=== PATIENT | male | born 1980 | race Two or more races ===

== ENCOUNTER 2017-03-13 12:39 | Inpatient (IN) | payer BC ==
[2017-03-13 14:35] VITALS: BMI 34.5
--- NOTE | 2017-03-13 15:25 | HP ---
Admission ROS [facility] Chief Complaint: I only drink on the weekend but I am here for rehab. Allergies/Adverse Reactions: Allergies Allergy/AdvReac Type Severity Reaction Status Date / Time No Known Allergies Allergy Verified 03/13/17 15:18 History of Present Illness: pt is a 36yr old male with a history of alcohol, kadeem, cannabis dependence seeking rehab for treatment. Pt was at [facility] 03/08 and d/c today, for chest pain. pt had a cardiac cath and no blockage noted. pt was discharged with naproxen for pain. Exam Limitations: No Limitations - Ebola screening Have you traveled outside of the country in the last 21 days: No Have you had contact with anyone from an Ebola affected area: No Have you been sick,other than usual withdrawal symptoms: No Do you have a fever: No - Review of Systems Constitutional: Changes in sleep EENT: reports: No Symptoms Reported Respiratory: reports: No Symptoms reported Cardiac: reports: No Symptoms Reported, Other (r/o cardiac issue a nonstemi done.) GI: reports: No Symptoms Reported : reports: No Symptoms Reported Musculoskeletal: reports: Joint Pain (right ankle d/t fall) Integumentary: reports: No Symptoms Reported Neuro: reports: No Symptoms reported Endocrine: reports: No Symptoms Reported Hematology: reports: No Symptoms Reported Psychiatric: reports: Judgement Intact, Mood/Affect Appropiate, Orientated x3, Agitated, Anxious Other Systems: Reviewed and Negative Patient History - Patient Medical History Hx Anemia: No Hx Asthma: No Hx Chronic Obstructive Pulmonary Disease (COPD): No Hx Cancer: No Hx Cardiac Disorders: Yes (NONSTEMI 02/2017) Hx Congestive Heart Failure: No Hx Hypertension: No Hx Hypercholesterolemia: No Hx Pacemaker: No HX Cerebrovascular Accident: No Hx Seizures: No Hx Dementia: No Hx Diabetes: No Hx Gastrointestinal Disorders: No Hx Liver Disease: No Hx Genitourinary Disorders: No Hx Sexually Transmitted Disorders: No Hx Renal Disease (ESRD): No Hx Thyroid Disease: No Hx Human Immunodeficiency Virus (HIV): No (negative) Hx Hepatitis C: No Hx Depression: No Hx Suicide Attempt: No (denies) Hx Bipolar Disorder: No Hx Schizophrenia: No Other Medical History: ADD as a child - Patient Surgical History Hx Cardiac Surgery: Yes (cardiac cath 02/2017) Hx Orthopedic Surgery: Yes (rt ankle sx 17months ago 2016) - PPD History Previous Implant?: Yes Documented Results: Negative w/o proof PPD to be Administered?: Yes - Reproductive History Patient is a Female of Child Bearing Age (11 -55 yrs old): No - Smoking Cessation Smoking history: Current every day smoker Have you smoked in the past 12 months: Yes Aproximately how many cigarettes per day: 4 Hx Chewing Tobacco Use: No Initiated information on smoking cessation: Yes 'Breaking Loose' booklet given: 03/13/17 - Substance & Tx. History Hx Alcohol Use: Yes Hx Substance Use: Yes Substance Use Type: Alcohol, Cocaine, Marijuana Hx Substance Use Treatment: Yes - Substances Abused Alcohol Route: Oral Frequency: 1-2 times per week Amount used: 1 Alcohol-beer Route: Oral Frequency: 3-6 times per week Amount used: 6-7 (24 oz.) Age of first use: 19 Date of Last Use: 03/12/17 Ecstacy Route: Oral Frequency: 1-2 times per week Amount used: $150 Age of first use: 35 Date of Last Use: 02/26/17 Marijuana Route: Smoking Frequency: Daily Amount used: $30 Age of first use: 15 Date of Last Use: 03/11/17 Family Disease History - Family Disease History Family History: Denies Admission Physical Exam S - Vital Signs Vital Signs: Vital Signs - 24 hr 03/13/17 14:33 Temperature 97 F L Pulse Rate 90 Respiratory 20 Rate Blood Pressure 149/80 - Physical General Appearance: Yes: Appropriately Dressed, Mild Distress, Anxious HEENTM: Yes: Normal Voice Respiratory: Yes: Lungs Clear, Normal Breath Sounds, No Respiratory Distress Neck: Yes: Within Normal Limits Breast: Yes: Within Normal Limits Cardiology: Yes: Regular Rhythm, Regular Rate, S1, S2 Abdominal: Yes: Within Normal Limits Genitourinary: Yes: Within Normal Limits Back: Yes: Normal Inspection Musculoskeletal: Yes: Other (right ankle pain) Extremities: Yes: Normal Capillary Refill Neurological: Yes: Fully Oriented, Alert, Normal Response Integumentary: Yes: Normal Color Lymphatic: Yes: Within Normal Limits - Diagnostic (1) Alcohol abuse Current Visit: No Status: Chronic (2) Cannabis dependence Current Visit: Yes Status: Chronic (3) Nicotine dependence Current Visit: Yes Status: Chronic Qualifiers: Nicotine product type: cigarettes Substance use status: uncomplicated Qualified Code(s): F17.210 - Nicotine dependence, cigarettes, uncomplicated; F17.210 - Nicotine dependence, cigarettes, uncomplicated Cleared for Admission S - Detox or Rehab [facility] Level of Care: Medically Managed Claeared for Rehab Admission: Yes [facility] Breath Alcohol Content Breath Alcohol Content: 0 Urine Drug Screen - Results Drug Screen Negative: No Urine Drug Screen Results: THC-Marijuana, ANA-Cocaine, BZO-Benzodiazepines, TCA- Tricyclic Antidepress Inpatient Rehab Admission - Initial Determination Free of communicable disease: Yes Not in need of hospitalization: Yes - Rehab Admission Criteria Patient is meeting Inpatient Rehab admission criteria:: Yes
[2017-03-13] MEDS ORDERED: guaiFENesin/D-METHORPHAN HB 10 ML UNIT-DOSE CUPS PO PRN (15:30)
[2017-03-13] MEDS ORDERED: NICOTINE POLACRILEX 4 MG GUM BC PRN (15:30)
[2017-03-13] MEDS ORDERED: MAGNESIUM CITRATE 300 ML BOTTLE PO PRN (15:30)
[2017-03-13] MEDS ORDERED: MENTHOL/PHENOL 1 EACH UD MM PRN (15:30)
[2017-03-13] MEDS ORDERED: IBUPROFEN 400 MG TABLET (FP) PO PRN (15:30)
[2017-03-13] MEDS ORDERED: ACETAMINOPHEN 325 MG TABLET (FP) PO PRN (15:30)
[2017-03-13] MEDS ORDERED: P-EPHED 60MG/TRIPROLIDI 2.5MG TABLET PO PRN (15:30)
[2017-03-13] MEDS ORDERED: LOPERAMIDE HCL 2 MG CAPSULE PO PRN (15:30)
[2017-03-13] MEDS ORDERED: MAG HYDROX/AL HYDROX/SIMETH 30 ML UNIT-DOSE CUP PO PRN (15:30)
[2017-03-13] MEDS ORDERED: TUBERCULIN PPD 5 TU/0.1ML VIAL ID ONE (19:39)
[2017-03-13] MEDS: NAPROXEN 500 MG TABLET (FP) PO SCH (21:31)
[2017-03-13] MEDS: THIAMINE HCL 100 MG TABLET (FP) PO SCH (21:32)
[2017-03-13] MEDS: diphenhydrAMINE HCL 50 MG CAPSULE PO PRN (21:32)
[2017-03-14 00:53] LABS: URINE APPEARANCE CLEAR; URINE BILIRUBIN NEGATIVE (NEGATIVE); URINE BLOOD NEGATIVE (NEGATIVE); URINE COLOR YELLOW; URINE GLUCOSE (UA) NEGATIVE (NEGATIVE); URINE KETONE NEGATIVE (NEGATIVE); URINE NITRITE NEGATIVE (NEGATIVE); URINE PROTEIN NEGATIVE (NEGATIVE); URINE UROBILINOGEN NEGATIVE mg/dL (0.2-1.0)
--- NOTE | 2017-03-14 06:32 | HP ---
Psychiatrist Admission - Data Date of interview: 03/14/17 Admission source: 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 Smokes 4 cigarettes daily Psychiatric History: Reports being diagnosed with ADHD at age 13 and started on Adderall which he has been taking on & off till a month ago. He sees a psychiatrist at [facility] and he is prescribed Adderall 30 mg po BID and Seroquel 300 mg po HS for insomnia. Denies previous psychiatric hospitalization or suicidal attempt. At present, reports feeling mildly depressed and sleeping poorly Physical/Sexual Abuse/Trauma History: Denies history of verbal, physical or sexual abuse as wel as DV relationship. No service Additional Comment: Reports history of one previous arrest for DWI. No probation currently Vital Signs: Vital Signs - 24 hr 03/13/17 03/13/17 03/14/17 14:33 23:26 00:43 Temperature 97 F L 97.4 F L Pulse Rate 90 85 Respiratory 20 16 18 Rate Blood Pressure 149/80 130/79 03/14/17 03:30 Temperature Pulse Rate Respiratory 18 Rate Blood Pressure Allergies/Adverse Reactions: Allergies Allergy/AdvReac Type Severity Reaction Status Date / Time No Known Allergies Allergy Verified 03/13/17 15:18 Date of last physical exam: 03/13/17 Concur with the findings of this exam: Yes - Substance Abuse/Tx History Hx Alcohol Use: Yes Hx Substance Use: Yes (Began using ecstacy at 35, consumes $150 1-2x weekly. Last used on 02/26/17) Substance Use Type: Alcohol (Started drinking beer at age 19, consumes 6-7x 24oz daily. Last drank on 03/12/17), Marijuana (Started smoking marijuana at age 15, consumes $30 worth daily. Last smoked on 03/11/17) Hx Substance Use Treatment: No Mental Status Exam - Mental Status Exam Alert and Oriented to: Time, Place, Person Cognitive Function: Fair Patient Appearance: Well Groomed Mood: Depressed Affect: Appropriate Patient Behavior: Cooperative Speech Pattern: Clear Voice Loudness: Normal Thought Process: Intact Thought Disorder: Not Present Hallucinations: Denies Suicidal Ideation: Denies Homicidal Ideation: Denies Insight/Judgement: Fair Sleep: Poorly Appetite: Good Muscle strength/Tone: Normal Gait/Station: Normal Psychiatric Findings - Problem List (Ducor 1, 2,3) (1) Alcohol dependence Current Visit: Yes Status: Acute (2) Cannabis dependence Current Visit: Yes Status: Chronic (3) Methylenedioxymethyamphetamine (MDMA) use disorder, moderate, in early remission, dependence Current Visit: Yes Status: Acute (4) Nicotine dependence Current Visit: Yes Status: Acute (5) ADHD (attention deficit hyperactivity disorder) Current Visit: Yes Status: Acute (6) Substance induced mood disorder Current Visit: Yes Status: Acute (7) Substance-induced sleep disorder Current Visit: Yes Status: Acute (8) NSTEMI (non-ST elevated myocardial infarction) Current Visit: Yes Status: Acute - Initial Treatment Plan Initial Treatment Plan: 1) Start Ritalin 5 mg po BID and Belsomra 10 mg po HS prn for insomnia. 2) Monitor progress
[2017-03-14 09:48] LABS: URINE LEUK ESTERASE Negative (NEGATIVE)
[2017-03-14] MEDS: PRENATAL VITAMINS W/ FOLIC ACID TABLET (FP) PO SCH (10:01)
[2017-03-14] MEDS: NICOTINE 7 MG/24 HOURS TOPICAL PATCH TD SCH (10:01)
[2017-03-14] MEDS: NAPROXEN 500 MG TABLET (FP) PO SCH ×2 (10:01→21:33)
[2017-03-14 10:02] LABS: MCH 30.9 pg (25.7-33.7); MCHC 34.5 g/dl (32.0-35.9); MEAN CELL VOLUME 89.4 fl (80-96); MEAN PLT VOLUME 8.6 fl (7.5-11.1); PLATELET COUNT 319 K/MM3 (134-434); RDW 13.7 % (11.9-15.9); WHITE BLOOD COUNT 5.4 K/mm3 (4.0-10.0)
--- NOTE | 2017-03-14 10:12 | EKG ---
Test Reason : Blood Pressure : / mmHG Vent. Rate : 067 BPM Atrial Rate : 067 BPM P-R Int : 150 ms QRS Dur : 082 ms QT Int : 428 ms P-R-T Axes : 053 052 040 degrees QTc Int : 452 ms NORMAL SINUS RHYTHM NORMAL ECG NO PREVIOUS ECGS AVAILABLE Confirmed by FELICE STILL MD ([id number]) on 03/14/2017 10:11:52 AM Referred By: Confirmed By:FELICE STILL MD
[2017-03-14 10:22] LABS: ALBUMIN 3.3 g/dl (3.4-5.0); ALK PHOS 157 U/L (45-117); ANION GAP 6 (8-16); BILIRUBIN,TOTAL 0.8 mg/dL (0.2-1.0); CO2 29 mmol/L (21-32); CREATININE 1.2 mg/dL (0.7-1.3); GLUCOSE,RANDOM 77 mg/dL (74-106); SGOT/AST 39 U/L (15-37); SGPT/ALT 96 U/L (12-78); TOT PROT 5.8 g/dl (6.4-8.2)
[2017-03-14] MEDS: hydrOXYzine PAMOATE 50 MG CAPSULE (FP) PO PRN (10:44)
[2017-03-14] MEDS: METHYLPHENIDATE HCL 5 MG TABLET PO SCH ×2 (11:15→17:12)
[2017-03-14] MEDS ORDERED: PNEUMOC 13-VAL CONJ-DIP CRM/PF 0.5 ML DISP.SYRIN IM ONE ×2 (12:00)
[2017-03-14] MEDS ORDERED: PNEUMOCOCCAL 23 VACCINE 0.5 ML VIAL IM ONE (12:00)
[2017-03-14] MEDS: THIAMINE HCL 100 MG TABLET (FP) PO SCH (21:33)
[2017-03-14] MEDS: SUVOREXANT 10 MG TABLET PO PRN (21:35)
[2017-03-15] MEDS: NAPROXEN 500 MG TABLET (FP) PO SCH ×2 (10:21→21:58)
[2017-03-15] MEDS: METHYLPHENIDATE HCL 5 MG TABLET PO SCH ×2 (10:21→16:59)
[2017-03-15] MEDS: PRENATAL VITAMINS W/ FOLIC ACID TABLET (FP) PO SCH (10:21)
[2017-03-15] MEDS: NICOTINE 7 MG/24 HOURS TOPICAL PATCH TD SCH (10:23)
[2017-03-15] MEDS: THIAMINE HCL 100 MG TABLET (FP) PO SCH (21:58)
[2017-03-15] MEDS: SUVOREXANT 10 MG TABLET PO PRN (22:00)
[2017-03-16] MEDS: diphenhydrAMINE HCL 50 MG CAPSULE PO PRN (00:02)
[2017-03-16] MEDS: METHYLPHENIDATE HCL 5 MG TABLET PO SCH ×2 (10:14→17:07)
[2017-03-16] MEDS: PRENATAL VITAMINS W/ FOLIC ACID TABLET (FP) PO SCH (10:14)
[2017-03-16] MEDS: NICOTINE 7 MG/24 HOURS TOPICAL PATCH TD SCH (10:15)
[2017-03-16] MEDS: NAPROXEN 500 MG TABLET (FP) PO SCH ×2 (10:15→21:40)
[2017-03-16] MEDS: MAGNESIUM HYDROX 2400MG/30ML ORAL SUSPENSION 30 ML CUP PO PRN (13:54)
[2017-03-16] MEDS: hydrOXYzine PAMOATE 50 MG CAPSULE (FP) PO PRN (20:08)
[2017-03-16] MEDS: THIAMINE HCL 100 MG TABLET (FP) PO SCH (21:40)
[2017-03-16] MEDS: SUVOREXANT 10 MG TABLET PO PRN (21:41)
[2017-03-17] MEDS: METHYLPHENIDATE HCL 5 MG TABLET PO SCH ×2 (10:25→16:43)
[2017-03-17] MEDS: NICOTINE 7 MG/24 HOURS TOPICAL PATCH TD SCH (10:25)
[2017-03-17] MEDS: PRENATAL VITAMINS W/ FOLIC ACID TABLET (FP) PO SCH (10:25)
[2017-03-17] MEDS: NAPROXEN 500 MG TABLET (FP) PO SCH ×3 (10:25→21:46)
[2017-03-17] MEDS: hydrOXYzine PAMOATE 50 MG CAPSULE (FP) PO PRN (16:45)
[2017-03-17] MEDS: THIAMINE HCL 100 MG TABLET (FP) PO SCH (21:46)
[2017-03-17] MEDS: SUVOREXANT 10 MG TABLET PO PRN (21:47)
[2017-03-17] MEDS: diphenhydrAMINE HCL 50 MG CAPSULE PO PRN (23:47)
[2017-03-18] MEDS: METHYLPHENIDATE HCL 5 MG TABLET PO SCH ×2 (10:19→16:44)
[2017-03-18] MEDS: PRENATAL VITAMINS W/ FOLIC ACID TABLET (FP) PO SCH (10:19)
[2017-03-18] MEDS: NICOTINE 7 MG/24 HOURS TOPICAL PATCH TD SCH (10:19)
[2017-03-18] MEDS: NAPROXEN 500 MG TABLET (FP) PO SCH ×2 (10:19→21:36)
[2017-03-18] MEDS: THIAMINE HCL 100 MG TABLET (FP) PO SCH (21:36)
[2017-03-18] MEDS: diphenhydrAMINE HCL 50 MG CAPSULE PO PRN (23:31)
[2017-03-19] MEDS: PRENATAL VITAMINS W/ FOLIC ACID TABLET (FP) PO SCH (10:27)
[2017-03-19] MEDS: METHYLPHENIDATE HCL 5 MG TABLET PO SCH ×2 (10:27→16:46)
[2017-03-19] MEDS: NAPROXEN 500 MG TABLET (FP) PO SCH ×2 (10:27→21:48)
[2017-03-19] MEDS: NICOTINE 7 MG/24 HOURS TOPICAL PATCH TD SCH (10:27)
[2017-03-19] MEDS: MAGNESIUM HYDROX 2400MG/30ML ORAL SUSPENSION 30 ML CUP PO PRN (13:13)
[2017-03-19] MEDS: hydrOXYzine PAMOATE 50 MG CAPSULE (FP) PO PRN (18:25)
[2017-03-19] MEDS: THIAMINE HCL 100 MG TABLET (FP) PO SCH (21:48)
[2017-03-19] MEDS: SUVOREXANT 10 MG TABLET PO PRN (21:50)
[2017-03-20] MEDS: NAPROXEN 500 MG TABLET (FP) PO SCH ×2 (10:42→21:45)
[2017-03-20] MEDS: PRENATAL VITAMINS W/ FOLIC ACID TABLET (FP) PO SCH (10:42)
[2017-03-20] MEDS: METHYLPHENIDATE HCL 5 MG TABLET PO SCH ×2 (10:42→17:01)
[2017-03-20] MEDS: NICOTINE 7 MG/24 HOURS TOPICAL PATCH TD SCH (10:45)
[2017-03-20] MEDS: NITROGLYCERIN SUBLINGUAL 1/150 0.4 MG TAB SL PRN (19:30)
[2017-03-20] MEDS: THIAMINE HCL 100 MG TABLET (FP) PO SCH (21:46)
[2017-03-20] MEDS: SUVOREXANT 10 MG TABLET PO PRN (23:24)
[2017-03-21] MEDS: PRENATAL VITAMINS W/ FOLIC ACID TABLET (FP) PO SCH (10:07)
[2017-03-21] MEDS: NICOTINE 7 MG/24 HOURS TOPICAL PATCH TD SCH (10:08)
[2017-03-21] MEDS: NAPROXEN 500 MG TABLET (FP) PO SCH ×2 (10:09→21:42)
[2017-03-21] MEDS: METHYLPHENIDATE HCL 5 MG TABLET PO SCH (13:04)
[2017-03-21] MEDS: hydrOXYzine PAMOATE 50 MG CAPSULE (FP) PO PRN (14:25)
[2017-03-21] MEDS: THIAMINE HCL 100 MG TABLET (FP) PO SCH (21:42)
[2017-03-21] MEDS: SUVOREXANT 10 MG TABLET PO PRN (21:43)
[2017-03-22] MEDS: diphenhydrAMINE HCL 50 MG CAPSULE PO PRN
[2017-03-22] MEDS: METHYLPHENIDATE HCL 5 MG TABLET PO SCH ×2 (09:52→14:00)
[2017-03-22] MEDS: NICOTINE 7 MG/24 HOURS TOPICAL PATCH TD SCH (09:52)
[2017-03-22] MEDS: NAPROXEN 500 MG TABLET (FP) PO SCH ×2 (09:52→21:36)
[2017-03-22] MEDS: PRENATAL VITAMINS W/ FOLIC ACID TABLET (FP) PO SCH (09:52)
[2017-03-22] MEDS: MAGNESIUM HYDROX 2400MG/30ML ORAL SUSPENSION 30 ML CUP PO PRN (09:54)
[2017-03-22] MEDS: hydrOXYzine PAMOATE 50 MG CAPSULE (FP) PO PRN (21:36)
[2017-03-22] MEDS: THIAMINE HCL 100 MG TABLET (FP) PO SCH (21:36)
[2017-03-23] MEDS: diphenhydrAMINE HCL 50 MG CAPSULE PO PRN (00:08)
[2017-03-23] MEDS: PRENATAL VITAMINS W/ FOLIC ACID TABLET (FP) PO SCH (10:10)
[2017-03-23] MEDS: NICOTINE 7 MG/24 HOURS TOPICAL PATCH TD SCH (10:10)
[2017-03-23] MEDS: NAPROXEN 500 MG TABLET (FP) PO SCH ×2 (10:10→21:36)
[2017-03-23] MEDS: METHYLPHENIDATE HCL 5 MG TABLET PO SCH ×2 (10:10→14:10)
[2017-03-23] MEDS: THIAMINE HCL 100 MG TABLET (FP) PO SCH (21:36)
[2017-03-23] MEDS: hydrOXYzine PAMOATE 50 MG CAPSULE (FP) PO PRN (21:36)
[2017-03-24] MEDS: NICOTINE 7 MG/24 HOURS TOPICAL PATCH TD SCH (10:09)
[2017-03-24] MEDS: METHYLPHENIDATE HCL 5 MG TABLET PO SCH ×2 (10:10→14:05)
[2017-03-24] MEDS: PRENATAL VITAMINS W/ FOLIC ACID TABLET (FP) PO SCH (10:10)
[2017-03-24] MEDS: NAPROXEN 500 MG TABLET (FP) PO SCH ×2 (10:11→21:45)
[2017-03-24] MEDS: MAGNESIUM HYDROX 2400MG/30ML ORAL SUSPENSION 30 ML CUP PO PRN (10:12)
[2017-03-24] MEDS: hydrOXYzine PAMOATE 50 MG CAPSULE (FP) PO PRN (21:45)
[2017-03-24] MEDS: THIAMINE HCL 100 MG TABLET (FP) PO SCH (21:45)
[2017-03-25] MEDS: diphenhydrAMINE HCL 50 MG CAPSULE PO PRN ×2 (00:25→22:54)
[2017-03-25] MEDS: PRENATAL VITAMINS W/ FOLIC ACID TABLET (FP) PO SCH (10:11)
[2017-03-25] MEDS: NAPROXEN 500 MG TABLET (FP) PO SCH ×2 (10:11→21:26)
[2017-03-25] MEDS: METHYLPHENIDATE HCL 5 MG TABLET PO SCH ×2 (10:11→14:08)
[2017-03-25] MEDS: NICOTINE 7 MG/24 HOURS TOPICAL PATCH TD SCH (10:12)
[2017-03-25] MEDS: hydrOXYzine PAMOATE 50 MG CAPSULE (FP) PO PRN (19:44)
[2017-03-25] MEDS: THIAMINE HCL 100 MG TABLET (FP) PO SCH (21:26)
[2017-03-26] MEDS: METHYLPHENIDATE HCL 5 MG TABLET PO SCH ×2 (10:12→14:07)
[2017-03-26] MEDS: NAPROXEN 500 MG TABLET (FP) PO SCH ×2 (10:12→21:28)
[2017-03-26] MEDS: PRENATAL VITAMINS W/ FOLIC ACID TABLET (FP) PO SCH (10:12)
[2017-03-26] MEDS: NICOTINE 7 MG/24 HOURS TOPICAL PATCH TD SCH (10:13)
[2017-03-26] MEDS: MAGNESIUM HYDROX 2400MG/30ML ORAL SUSPENSION 30 ML CUP PO PRN (14:13)
[2017-03-26] MEDS: NITROGLYCERIN SUBLINGUAL 1/150 0.4 MG TAB SL PRN (19:32)
[2017-03-26] MEDS: THIAMINE HCL 100 MG TABLET (FP) PO SCH (21:28)
--- NOTE | 2017-03-26 21:42 | PN ---
[facility] Progress Note Note: received nurse report that the patient has chest pain one dose nitro sl + ekg, normal ekg observed patient exercising in his room patient stated that he has chronic chest pain resolved by nitro sl clear lungs bilaterally S1S2 continue rehab
[2017-03-26] MEDS: diphenhydrAMINE HCL 50 MG CAPSULE PO PRN (23:46)
[2017-03-27] MEDS: NICOTINE 7 MG/24 HOURS TOPICAL PATCH TD SCH (10:16)
[2017-03-27] MEDS: NAPROXEN 500 MG TABLET (FP) PO SCH ×2 (10:16→21:39)
[2017-03-27] MEDS: PRENATAL VITAMINS W/ FOLIC ACID TABLET (FP) PO SCH (10:17)
[2017-03-27] MEDS: METHYLPHENIDATE HCL 5 MG TABLET PO SCH ×2 (10:17→13:04)
[2017-03-27] MEDS: MAGNESIUM HYDROX 2400MG/30ML ORAL SUSPENSION 30 ML CUP PO PRN (14:26)
--- NOTE | 2017-03-27 16:39 | EKG ---
Test Reason : Blood Pressure : / mmHG Vent. Rate : 084 BPM Atrial Rate : 084 BPM P-R Int : 158 ms QRS Dur : 070 ms QT Int : 362 ms P-R-T Axes : 043 061 039 degrees QTc Int : 427 ms NORMAL SINUS RHYTHM NORMAL ECG WHEN COMPARED WITH ECG OF 13-MAR-2017 22:09, NO SIGNIFICANT CHANGE WAS FOUND Confirmed by BASILIA ELIAS MD ([id number]) on 03/27/2017 4:39:14 PM Referred By: Confirmed By:BASILIA ELIAS MD
[2017-03-27] MEDS: hydrOXYzine PAMOATE 50 MG CAPSULE (FP) PO PRN (21:39)
[2017-03-27] MEDS: THIAMINE HCL 100 MG TABLET (FP) PO SCH (21:39)
[2017-03-28] MEDS: MAGNESIUM HYDROX 2400MG/30ML ORAL SUSPENSION 30 ML CUP PO PRN (10:26)
[2017-03-28] MEDS: NICOTINE 7 MG/24 HOURS TOPICAL PATCH TD SCH (10:26)
[2017-03-28] MEDS: METHYLPHENIDATE HCL 5 MG TABLET PO SCH ×2 (10:28→14:46)
[2017-03-28] MEDS: NAPROXEN 500 MG TABLET (FP) PO SCH ×2 (10:28→21:51)
[2017-03-28] MEDS: PRENATAL VITAMINS W/ FOLIC ACID TABLET (FP) PO SCH (10:28)
--- NOTE | 2017-03-28 14:18 | PN ---
Psychiatric Progress Note Vital Signs: Vital Signs Period Temp Pulse Resp BP Sys/Rueda Pulse Ox Last 24 Hr 98.0 F 71 16-20 119/65 Date of Session: 03/28/17 Chief Complaint:: "medication renewal" HPI: Patient is addressing alcohol, cannabis metha. dependence comorbid ADHD. ROS: WNL Current Medications: Active Medications Generic Name Dose Route Start Last Admin Trade Name Freq PRN Reason Stop Dose Admin Acetaminophen 650 mg 03/13/17 15:30 Tylenol - PO Q4H PRN PAIN Al Hydroxide/Mg Hydroxide 30 ml 03/13/17 15:30 Mylanta Oral Suspension - PO Q6H PRN DYSPEPSIA Diphenhydramine HCl 50 mg 03/13/17 15:30 03/26/17 23:46 Benadryl - PO 50 mg HSMR1 PRN Administration INSOMNIA Eucalyptus/Menthol/Phenol/Sorbitol 1 each 03/13/17 15:30 Cepastat Lozenge - MM Q4H PRN SORE THROAT Guaifenesin 10 ml 03/13/17 15:30 Robitussin Dm - PO Q6H PRN COUGH Hydroxyzine Pamoate 50 mg 03/13/17 15:30 03/27/17 21:39 Vistaril - PO 50 mg Q4H PRN Administration AGITATION Loperamide HCl 4 mg 03/13/17 15:30 Imodium - PO Q6H PRN DIARRHEA Magnesium Citrate 300 ml 03/13/17 15:30 Citroma - PO Q48H PRN CONSTIPATION Magnesium Hydroxide 30 ml 03/13/17 15:30 03/28/17 10:26 Milk Of Magnesia - PO 30 ml DAILY PRN Administration CONSTIPATION Methylphenidate HCl 10 mg 03/28/17 14:15 Ritalin - PO BID ALBERTO Naproxen 500 mg 03/13/17 22:00 03/28/17 10:28 Naprosyn - PO 500 mg BID ALBERTO Administration Nicotine 7 mg 03/14/17 10:00 03/28/17 10:26 Nicoderm Patch - TD 7 mg DAILY ALBERTO Administration Nicotine Polacrilex 4 mg 03/13/17 15:30 03/17/17 10:25 Nicorette Gum - BC 4 mg Q2H PRN Administration NICOTINE REPLACEMENT RX Nitroglycerin 0.4 mg 03/13/17 15:41 03/26/17 19:32 Nitrostat - SL 0.4 mg Q5M PRN Administration FOR CHEST PAIN Multivit/Folic Acid/Iron 1 tab 03/14/17 10:00 03/28/17 10:28 Vitamins (Sjr) - PO 1 tab DAILY ALBERTO Administration Pseudoephedrine/Triprolidine 1 combo 03/13/17 15:30 Actifed - PO TID PRN NASAL CONGESTION Thiamine HCl 100 mg 03/13/17 22:00 03/27/17 21:39 Vitamin B1 - PO 100 mg HS ALBERTO Administration Medication(s) Change(s): increase Ritalin 10 mg po bid and r/n Belsomra 10 mg po hs Current Side Effect: No Lab tests ordered: No Lab tests reviewed: Yes Provider note:: Reviewed the chart admission note appreciated, patient wasseen for meds. renewal, patient reports was on Addurall 20 mg po bid , started with Ritalin 5 mg po bid, patient reports he has a difficult time to focus and organize him self, easally deststructed while in groups. Reviewed his current medications, will increase ritalin 10 mg po bid, r/ n Belsomra, monitor progress as needed. Total face to face time:: 25 Mental Status Exam - Mental Status Exam Alert and Oriented to: Time, Place, Person Cognitive Function: Grossly Intact Patient Appearance: Well Groomed Mood: Anxious Affect: Appropriate, Mood Congruent Patient Behavior: Appropriate, Cooperative Speech Pattern: Clear, Appropriate Voice Loudness: Normal Thought Process: Intact, Goal Oriented Thought Disorder: Not Present Hallucinations: Denies Suicidal Ideation: Denies Homicidal Ideation: Denies Insight/Judgement: Fair Sleep: Poorly, Difficulty falling asleep Appetite: Fair Muscle strength/Tone: Normal Gait/Station: Normal Psychiatric Treatment Plan - Problem List (1) ADHD (attention deficit hyperactivity disorder) Current Visit: Yes (2) Alcohol dependence Current Visit: Yes (3) Methylenedioxymethyamphetamine (MDMA) use disorder, moderate, in early remission, dependence Current Visit: Yes (4) Nicotine dependence Current Visit: Yes (5) Substance induced mood disorder Current Visit: Yes (6) Substance-induced sleep disorder Current Visit: Yes (7) Cannabis dependence Current Visit: Yes
[2017-03-28] MEDS: SUVOREXANT 10 MG TABLET PO SCH (21:51)
[2017-03-28] MEDS: diphenhydrAMINE HCL 50 MG CAPSULE PO PRN ×2 (21:51→23:47)
[2017-03-28] MEDS: THIAMINE HCL 100 MG TABLET (FP) PO SCH (21:52)
[2017-03-29] MEDS: METHYLPHENIDATE HCL 5 MG TABLET PO SCH ×2 (10:06→14:38)
[2017-03-29] MEDS: NICOTINE 7 MG/24 HOURS TOPICAL PATCH TD SCH (10:06)
[2017-03-29] MEDS: NAPROXEN 500 MG TABLET (FP) PO SCH ×2 (10:06→21:33)
[2017-03-29] MEDS: PRENATAL VITAMINS W/ FOLIC ACID TABLET (FP) PO SCH (10:06)
[2017-03-29] MEDS: MAGNESIUM HYDROX 2400MG/30ML ORAL SUSPENSION 30 ML CUP PO PRN (14:41)
[2017-03-29] MEDS: THIAMINE HCL 100 MG TABLET (FP) PO SCH (21:33)
[2017-03-29] MEDS: SUVOREXANT 10 MG TABLET PO SCH (21:33)
[2017-03-30] MEDS: NICOTINE 7 MG/24 HOURS TOPICAL PATCH TD SCH (10:18)
[2017-03-30] MEDS: NAPROXEN 500 MG TABLET (FP) PO SCH ×2 (10:18→21:43)
[2017-03-30] MEDS: METHYLPHENIDATE HCL 5 MG TABLET PO SCH ×2 (10:18→14:10)
[2017-03-30] MEDS: PRENATAL VITAMINS W/ FOLIC ACID TABLET (FP) PO SCH (10:18)
[2017-03-30] MEDS: SUVOREXANT 10 MG TABLET PO SCH (21:43)
[2017-03-30] MEDS: THIAMINE HCL 100 MG TABLET (FP) PO SCH (21:43)
[2017-03-31] MEDS: NICOTINE 7 MG/24 HOURS TOPICAL PATCH TD SCH (09:55)
[2017-03-31] MEDS: METHYLPHENIDATE HCL 5 MG TABLET PO SCH ×2 (09:56→13:52)
[2017-03-31] MEDS: NAPROXEN 500 MG TABLET (FP) PO SCH ×2 (09:56→21:42)
[2017-03-31] MEDS: PRENATAL VITAMINS W/ FOLIC ACID TABLET (FP) PO SCH (09:56)
[2017-03-31] MEDS: SUVOREXANT 10 MG TABLET PO SCH (21:42)
[2017-03-31] MEDS: THIAMINE HCL 100 MG TABLET (FP) PO SCH (21:42)
[2017-03-31] MEDS: diphenhydrAMINE HCL 50 MG CAPSULE PO PRN (21:42)
[2017-04-01] MEDS: NICOTINE 7 MG/24 HOURS TOPICAL PATCH TD SCH (10:04)
[2017-04-01] MEDS: METHYLPHENIDATE HCL 5 MG TABLET PO SCH ×2 (10:04→14:16)
[2017-04-01] MEDS: PRENATAL VITAMINS W/ FOLIC ACID TABLET (FP) PO SCH (10:04)
[2017-04-01] MEDS: NAPROXEN 500 MG TABLET (FP) PO SCH ×2 (10:04→21:22)
[2017-04-01] MEDS: THIAMINE HCL 100 MG TABLET (FP) PO SCH (21:22)
[2017-04-01] MEDS: SUVOREXANT 10 MG TABLET PO SCH (21:22)
[2017-04-01] MEDS: hydrOXYzine PAMOATE 50 MG CAPSULE (FP) PO PRN (21:23)
[2017-04-02] MEDS: NAPROXEN 500 MG TABLET (FP) PO SCH ×2 (10:10→21:20)
[2017-04-02] MEDS: NICOTINE 7 MG/24 HOURS TOPICAL PATCH TD SCH (10:10)
[2017-04-02] MEDS: PRENATAL VITAMINS W/ FOLIC ACID TABLET (FP) PO SCH (10:10)
[2017-04-02] MEDS: METHYLPHENIDATE HCL 5 MG TABLET PO SCH ×2 (10:10→14:11)
[2017-04-02] MEDS: SUVOREXANT 10 MG TABLET PO SCH (21:20)
[2017-04-02] MEDS: THIAMINE HCL 100 MG TABLET (FP) PO SCH (21:20)
[2017-04-02] MEDS: hydrOXYzine PAMOATE 50 MG CAPSULE (FP) PO PRN (21:21)
[2017-04-03] MEDS: NAPROXEN 500 MG TABLET (FP) PO SCH ×2 (10:18→21:25)
[2017-04-03] MEDS: PRENATAL VITAMINS W/ FOLIC ACID TABLET (FP) PO SCH (10:18)
[2017-04-03] MEDS: METHYLPHENIDATE HCL 5 MG TABLET PO SCH ×2 (10:18→14:17)
[2017-04-03] MEDS: NICOTINE 7 MG/24 HOURS TOPICAL PATCH TD SCH (10:18)
[2017-04-03] MEDS: SUVOREXANT 10 MG TABLET PO SCH (21:25)
[2017-04-03] MEDS: THIAMINE HCL 100 MG TABLET (FP) PO SCH (21:25)
[2017-04-03] MEDS: hydrOXYzine PAMOATE 50 MG CAPSULE (FP) PO PRN (21:26)
[2017-04-04] MEDS: NAPROXEN 500 MG TABLET (FP) PO SCH ×2 (10:06→21:28)
[2017-04-04] MEDS: METHYLPHENIDATE HCL 5 MG TABLET PO SCH ×2 (10:06→14:13)
[2017-04-04] MEDS: NICOTINE 7 MG/24 HOURS TOPICAL PATCH TD SCH (10:06)
[2017-04-04] MEDS: PRENATAL VITAMINS W/ FOLIC ACID TABLET (FP) PO SCH (10:06)
[2017-04-04] MEDS: MAGNESIUM HYDROX 2400MG/30ML ORAL SUSPENSION 30 ML CUP PO PRN (10:08)
--- NOTE | 2017-04-04 11:16 | PN ---
[facility] Progress Note Note: patient reports ritalin and besomra effective, will r/n med.
[2017-04-04] MEDS: THIAMINE HCL 100 MG TABLET (FP) PO SCH (21:28)
[2017-04-04] MEDS ORDERED: SUVOREXANT 10 MG TABLET PO SCH ×2 (21:30→21:45)
[2017-04-04] MEDS: hydrOXYzine PAMOATE 50 MG CAPSULE (FP) PO PRN (21:30)
[2017-04-05] MEDS: NICOTINE 7 MG/24 HOURS TOPICAL PATCH TD SCH (10:03)
[2017-04-05] MEDS: NAPROXEN 500 MG TABLET (FP) PO SCH ×2 (10:04→21:23)
[2017-04-05] MEDS: PRENATAL VITAMINS W/ FOLIC ACID TABLET (FP) PO SCH (10:04)
[2017-04-05] MEDS: METHYLPHENIDATE HCL 5 MG TABLET PO SCH ×2 (10:26→14:05)
[2017-04-05] MEDS: THIAMINE HCL 100 MG TABLET (FP) PO SCH (21:23)
[2017-04-05] MEDS: hydrOXYzine PAMOATE 50 MG CAPSULE (FP) PO PRN (21:24)
[2017-04-06] MEDS: PRENATAL VITAMINS W/ FOLIC ACID TABLET (FP) PO SCH (10:05)
[2017-04-06] MEDS: NAPROXEN 500 MG TABLET (FP) PO SCH ×2 (10:05→21:35)
[2017-04-06] MEDS: METHYLPHENIDATE HCL 5 MG TABLET PO SCH ×2 (10:05→13:14)
[2017-04-06] MEDS: NICOTINE 7 MG/24 HOURS TOPICAL PATCH TD SCH (10:06)
[2017-04-06] MEDS: THIAMINE HCL 100 MG TABLET (FP) PO SCH (21:35)
[2017-04-06] MEDS: SUVOREXANT 10 MG TABLET PO PRN (21:36)
[2017-04-06] MEDS: hydrOXYzine PAMOATE 50 MG CAPSULE (FP) PO PRN (21:36)
[2017-04-07] MEDS: NICOTINE 7 MG/24 HOURS TOPICAL PATCH TD SCH (10:38)
[2017-04-07] MEDS: METHYLPHENIDATE HCL 5 MG TABLET PO SCH ×2 (10:38→14:14)
[2017-04-07] MEDS: PRENATAL VITAMINS W/ FOLIC ACID TABLET (FP) PO SCH (10:38)
[2017-04-07] MEDS: NAPROXEN 500 MG TABLET (FP) PO SCH ×2 (10:38→21:40)
[2017-04-07] MEDS: MAGNESIUM HYDROX 2400MG/30ML ORAL SUSPENSION 30 ML CUP PO PRN (10:41)
[2017-04-07] MEDS: THIAMINE HCL 100 MG TABLET (FP) PO SCH (21:40)
[2017-04-07] MEDS: hydrOXYzine PAMOATE 50 MG CAPSULE (FP) PO PRN (21:42)
[2017-04-07] MEDS: SUVOREXANT 10 MG TABLET PO PRN (21:42)
[2017-04-08 06:56] VITALS: BP 139/81; PULSE 77; TEMP 97.8
--- NOTE | 2017-04-08 10:20 | PN ---
Psychiatric Progress Note Vital Signs: Vital Signs Period Temp Pulse Resp BP Sys/Rueda Pulse Ox Last 24 Hr 97.8 F 77 18-18 139/81 Date of Session: 04/08/17 Chief Complaint:: discharge visit HPI: Patient has addressed alcohol, cannabis, metha. dependence comorbid ADHD Current Medications: Active Medications Generic Name Dose Route Start Last Admin Trade Name Freq PRN Reason Stop Dose Admin Acetaminophen 650 mg 03/13/17 15:30 Tylenol - PO Q4H PRN PAIN Al Hydroxide/Mg Hydroxide 30 ml 03/13/17 15:30 Mylanta Oral Suspension - PO Q6H PRN DYSPEPSIA Diphenhydramine HCl 50 mg 03/13/17 15:30 03/31/17 21:42 Benadryl - PO 50 mg HSMR1 PRN Administration INSOMNIA Eucalyptus/Menthol/Phenol/Sorbitol 1 each 03/13/17 15:30 Cepastat Lozenge - MM Q4H PRN SORE THROAT Guaifenesin 10 ml 03/13/17 15:30 04/05/17 21:24 Robitussin Dm - PO 10 ml Q6H PRN Administration COUGH Hydroxyzine Pamoate 50 mg 03/13/17 15:30 04/07/17 21:42 Vistaril - PO 50 mg Q4H PRN Administration AGITATION Loperamide HCl 4 mg 03/13/17 15:30 Imodium - PO Q6H PRN DIARRHEA Magnesium Citrate 300 ml 03/13/17 15:30 03/30/17 10:21 Citroma - PO 300 ml Q48H PRN Administration CONSTIPATION Magnesium Hydroxide 30 ml 03/13/17 15:30 04/07/17 10:41 Milk Of Magnesia - PO 30 ml DAILY PRN Administration CONSTIPATION Methylphenidate HCl 10 mg 04/05/17 10:30 04/07/17 14:14 Ritalin - PO 10 mg BID@1000,1400 ALBERTO Administration Naproxen 500 mg 03/13/17 22:00 04/07/17 21:40 Naprosyn - PO 500 mg BID ALBERTO Administration Nicotine 7 mg 03/14/17 10:00 04/07/17 10:38 Nicoderm Patch - TD 7 mg DAILY ALBERTO Administration Nicotine Polacrilex 4 mg 03/13/17 15:30 03/17/17 10:25 Nicorette Gum - BC 4 mg Q2H PRN Administration NICOTINE REPLACEMENT RX Nitroglycerin 0.4 mg 03/13/17 15:41 03/26/17 19:32 Nitrostat - SL 0.4 mg Q5M PRN Administration FOR CHEST PAIN Multivit/Folic Acid/Iron 1 tab 03/14/17 10:00 04/07/17 10:38 Vitamins (Sjr) - PO 1 tab DAILY ALBERTO Administration Pseudoephedrine/Triprolidine 1 combo 03/13/17 15:30 Actifed - PO TID PRN NASAL CONGESTION Thiamine HCl 100 mg 03/13/17 22:00 04/07/17 21:40 Vitamin B1 - PO 100 mg HS ALBERTO Administration Current Side Effect: No Lab tests ordered: No Lab tests reviewed: Yes Provider note:: Patient has completed today his treatment and met his goals, will continue to address his issues at the next level of care, he was referred to [facility] for resedential. Patient gained insights into his problems, focised on importance of changing behavior for the utilization of supports available to prevent relapses. Patient was encouraged to continue maintain abstinence, he is stable for discharge today. Total face to face time:: 15 Psychiatric Treatment Plan - Problem List (1) ADHD (attention deficit hyperactivity disorder) Current Visit: Yes (2) Alcohol dependence Current Visit: Yes (3) Methylenedioxymethyamphetamine (MDMA) use disorder, moderate, in early remission, dependence Current Visit: Yes (4) Nicotine dependence Current Visit: Yes (5) Substance induced mood disorder Current Visit: Yes (6) Substance-induced sleep disorder Current Visit: Yes (7) Cannabis dependence Current Visit: Yes
[2017-04-08] MEDS: PRENATAL VITAMINS W/ FOLIC ACID TABLET (FP) PO SCH (10:27)
[2017-04-08] MEDS: METHYLPHENIDATE HCL 5 MG TABLET PO SCH (10:27)
[2017-04-08] MEDS: NICOTINE 7 MG/24 HOURS TOPICAL PATCH TD SCH (10:27)
[2017-04-08] MEDS: NAPROXEN 500 MG TABLET (FP) PO SCH (10:27)
== END 2017-04-08 10:30 | disposition home or self-care (01) | DRG 772 ==
LOC: YASAS 12:39 → Y5N 16:20
PROVIDERS: ADMIT Psychiatry & Neurology Psychiatry; ATTEND Psychiatry & Neurology Psychiatry
PROC: HZ42ZZZ Group Counseling for Substance Abuse Treatment, Cognitive-Behavioral (ICD-10-PCS; principal; 2017-03-13)
DX: F10.20 Alcohol dependence, uncomplicated (principal); F15.20 Other stimulant dependence, uncomplicated; F12.20 Cannabis dependence, uncomplicated; F19.24 Other psychoactive substance dependence with psychoactive substance-induced mood disorder; F19.282 Other psychoactive substance dependence with psychoactive substance-induced sleep disorder; F90.9 Attention-deficit hyperactivity disorder, unspecified type; I25.2 Old myocardial infarction; Z98.61 Coronary angioplasty status
CPT/HCPCS: 36415; 80053; 81003; 85027; 86593; 90732; 93005; 93010; G0009

== ENCOUNTER 2024-02-25 15:46 | Inpatient (IN) | payer OTHER ==
[2024-02-25 16:24] VITALS: BMI 37.4
[2024-02-25] MEDS ORDERED: MAGNESIUM HYDROX 2400MG/30ML ORAL SUSPENSION 30 ML CUP PO PRN (20:25)
[2024-02-25] MEDS ORDERED: BENZONATATE 200 MG CAPSULE PO PRN (20:25)
[2024-02-25] MEDS ORDERED: POLYETHYLENE GLYCOL (HEALTHYLAX) 3350 17 GM PACKET PO PRN (20:25)
[2024-02-25] MEDS ORDERED: LOPERAMIDE HCL 2 MG CAPSULE PO PRN (20:25)
[2024-02-25] MEDS ORDERED: BISMUTH SUBSALICYLATE 524 MG/30 ML PO PRN (20:25)
[2024-02-25] MEDS ORDERED: ONDANSETRON *ODT* 4 MG TABLET SL PRN (20:25)
[2024-02-25] MEDS ORDERED: NALOXONE (NYS OPIOID OVERDOSE PROGRAM) 4 MG/0.1 ML SPRAY NS PRN (20:25)
[2024-02-25] MEDS ORDERED: MAG HYDROX/AL HYDROX/SIMETH 30 ML UNIT-DOSE CUP PO PRN (20:25)
[2024-02-25] MEDS ORDERED: hydrOXYzine PAMOATE 25 MG CAPSULE (FP) PO PRN (20:25)
[2024-02-25] MEDS ORDERED: BENZOCAINE/MENTHOL (CHLORASEPTIC ) LOZENGE MM PRN (20:25)
[2024-02-25] MEDS ORDERED: ACETAMINOPHEN 325 MG TABLET (FP) PO PRN (20:25)
[2024-02-25] MEDS ORDERED: NICOTINE POLACRILEX 2 MG GUM BUC PRN (20:25)
[2024-02-25] MEDS ORDERED: IBUPROFEN 400 MG TABLET (FP) PO PRN (20:25)
[2024-02-25] MEDS ORDERED: NALOXONE (NARCAN) HCL 4 MG/0.1 ML SPRAY NS PRN (20:25)
[2024-02-25] MEDS ORDERED: DICYCLOMINE HCL 10 MG CAPSULE PO PRN (20:25)
[2024-02-25] MEDS: MELATONIN 5 MG TABLETS PO SCH (21:27)
[2024-02-25] MEDS: THIAMINE 100 MG TABLET PO SCH (21:27)
[2024-02-26] MEDS ORDERED: diazePAM 5 MG TABLET PO PRN (09:06)
[2024-02-26] MEDS: diazePAM 5 MG TABLET PO SCH (10:22)
[2024-02-26] MEDS: NICOTINE 14 MG/24 HOURS TOPICAL PATCH TD SCH (10:22)
[2024-02-26] MEDS: PRENATAL VITAMINS W/ FOLIC ACID TABLET (FP) PO SCH (10:24)
[2024-02-26] MEDS: DEXTROAMPHETAMINE/AMPHETAMINE 10 MG CAP.ER.24H PO SCH (10:55)
[2024-02-26] MEDS: ALBUTEROL SO4 HFA INHALER IH PRN (11:38)
[2024-02-26] MEDS: METHOCARBAMOL 500 MG TABLET PO PRN (12:05)
[2024-02-26 12:08] LABS: HEMATOCRIT 42.7 % (35.4-49); HEMOGLOBIN 14.3 GM/dL (11.7-16.9); MCHC 33.6 g/dl (32.0-35.9); MEAN CELL VOLUME 89.5 fl (80-96); MEAN PLT VOLUME 8.9 fl (7.5-11.1); PLATELET COUNT 286 10^3/uL (134-434); RBC 4.78 M/mm3 (4.00-5.60); RDW 14.1 % (11.9-15.9); WHITE BLOOD COUNT 4.3 K/mm3 (4.0-10.0)
[2024-02-26 13:19] LABS: CHLORIDE 106 mmol/L (98-107); POTASSIUM 4.9 mmol/L (3.5-5.1); SODIUM 140 mmol/L (136-145)
[2024-02-26 13:21] LABS: ALBUMIN 3.6 g/dl (3.4-5.0); ANION GAP 4 mmol/L (4-13); BLOOD UREA NITROGEN 15.4 mg/dL (7-18); CALCIUM 8.9 mg/dL (8.5-10.1); CO2 31 mmol/L (21-32)
[2024-02-26 13:22] LABS: GLUCOSE,RANDOM 103 mg/dL (74-106)
[2024-02-26 13:24] LABS: CREATININE 1.2 mg/dL (0.55-1.3); SGOT/AST 39 U/L (15-37); SGPT/ALT 63 U/L (13-61)
[2024-02-26 13:26] LABS: BILIRUBIN,TOTAL 0.8 mg/dL (0.2-1); TOT PROT 6.8 g/dl (6.4-8.2)
[2024-02-26 13:27] LABS: ALK PHOS 114 U/L (45-117)
[2024-02-26] MEDS: guaiFENesin 600 MG TABLET.ER (FP) PO PRN (17:19)
[2024-02-26] MEDS: MONTELUKAST NA 10 MG TABLET PO SCH (22:39)
[2024-02-26] MEDS: SERTRALINE HCL 50 MG TABLET (FP) PO SCH (22:39)
[2024-02-26] MEDS: ARIPiprazole 10 MG TABLET PO SCH (22:39)
[2024-02-26] MEDS: traZODone HCL 50 MG TABLET (FP) PO SCH (22:39)
[2024-02-27] MEDS: IBUPROFEN 600 MG TABLET (FP) PO PRN (17:21)
[2024-02-28] MEDS: diazePAM 5 MG TABLET PO SCH (06:40)
[2024-02-29] MEDS: diazePAM 5 MG TABLET PO SCH (05:52)
[2024-02-29] MEDS: guaiFENesin 200 MG/10 ML 10 ML UNIT-DOSE CUPS PO PRN (13:53)
[2024-02-29] MEDS ORDERED: ARIPiprazole 5 MG TABLET ONE (21:16)
[2024-03-01] MEDS: diazePAM 5 MG TABLET PO ONE (05:48)
[2024-03-01] MEDS: amLODIPine BESYLATE 10 MG TABLET (FP) PO SCH (16:01)
[2024-03-02] MEDS: NALTREXONE HCL 50 MG TABLET PO ONE (09:55)
[2024-03-02 12:22] VITALS: BP 134/81; PULSE 91; RESP 16; TEMP 97.6
== END 2024-03-02 12:23 | disposition other institution (70) | DRG 774 ==
LOC: YASAS 15:46 → Y3N 20:53
PROVIDERS: ADMIT Allergy & Immunology; ATTEND Surgery
PROC: HZ2ZZZZ Detoxification Services for Substance Abuse Treatment (ICD-10-PCS; principal; 2024-02-25)
DX: F10.230 Alcohol dependence with withdrawal, uncomplicated (principal); F14.20 Cocaine dependence, uncomplicated; F13.20 Sedative, hypnotic or anxiolytic dependence, uncomplicated; F12.20 Cannabis dependence, uncomplicated; F17.210 Nicotine dependence, cigarettes, uncomplicated; F19.282 Other psychoactive substance dependence with psychoactive substance-induced sleep disorder; F19.24 Other psychoactive substance dependence with psychoactive substance-induced mood disorder; F41.9 Anxiety disorder, unspecified; F32.A Depression, unspecified; F90.9 Attention-deficit hyperactivity disorder, unspecified type; G47.30 Sleep apnea, unspecified; I10 Essential (primary) hypertension; J45.909 Unspecified asthma, uncomplicated
CPT/HCPCS: 36415; 80053; 80305; 80307; 85027; 86780; 87811

== ENCOUNTER 2024-03-02 12:23 | Inpatient (IN) | payer OTHER ==
[2024-03-02] MEDS ORDERED: IBUPROFEN 400 MG TABLET (FP) PO PRN (13:40)
[2024-03-02] MEDS ORDERED: NICOTINE POLACRILEX 4 MG LOZENGE BC PRN (13:40)
[2024-03-02] MEDS ORDERED: LOPERAMIDE HCL 2 MG CAPSULE PO PRN (13:40)
[2024-03-02] MEDS ORDERED: BENZONATATE 200 MG CAPSULE PO PRN (13:40)
[2024-03-02] MEDS ORDERED: NALOXONE HCL 0.4 MG/ML VIAL IVPUSH PRN (13:40)
[2024-03-02] MEDS ORDERED: IBUPROFEN 600 MG TABLET (FP) PO PRN (13:40)
[2024-03-02] MEDS ORDERED: NALOXONE (NARCAN) HCL 4 MG/0.1 ML SPRAY NS PRN (13:40)
[2024-03-02] MEDS ORDERED: POLYETHYLENE GLYCOL (HEALTHYLAX) 3350 17 GM PACKET PO PRN (13:40)
[2024-03-02] MEDS: SERTRALINE HCL 50 MG TABLET (FP) PO SCH (21:06)
[2024-03-02] MEDS: MELATONIN 5 MG TABLETS PO SCH (21:06)
[2024-03-02] MEDS: THIAMINE 100 MG TABLET PO SCH (21:06)
[2024-03-02] MEDS: NAPROXEN 500 MG TABLET PO SCH (21:07)
[2024-03-02] MEDS: MONTELUKAST NA 10 MG TABLET PO SCH (21:08)
[2024-03-02] MEDS: traZODone HCL 50 MG TABLET (FP) PO SCH (21:08)
[2024-03-02] MEDS: ARIPiprazole 10 MG TABLET PO SCH (21:08)
[2024-03-03] MEDS: DEXTROAMPHETAMINE/AMPHETAMINE 10 MG CAP.ER.24H PO SCH (05:57)
[2024-03-03] MEDS: amLODIPine BESYLATE 10 MG TABLET (FP) PO SCH (09:00)
[2024-03-03] MEDS: PRENATAL VITAMINS W/ FOLIC ACID TABLET (FP) PO SCH (09:00)
[2024-03-03] MEDS ORDERED: ARIPiprazole 10 MG TABLET PO SCH (10:00)
[2024-03-03] MEDS: ALBUTEROL SO4 HFA INHALER IH PRN (17:07)
[2024-03-03] MEDS: guaiFENesin 600 MG TABLET.ER (FP) PO PRN (21:45)
[2024-03-04] MEDS: MAGNESIUM HYDROX 2400MG/30ML ORAL SUSPENSION 30 ML CUP PO PRN (19:25)
[2024-03-06] MEDS: METHOCARBAMOL 500 MG TABLET PO PRN (18:44)
[2024-03-06] MEDS: NICOTINE 14 MG/24 HOURS TOPICAL PATCH TD PRN (19:03)
[2024-03-08] MEDS: BACLOFEN 10 MG TABLET (FP) PO SCH (21:02)
[2024-03-09] MEDS: NICOTINE POLACRILEX 4 MG GUM BUC PRN (17:22)
[2024-03-09] MEDS: MAG HYDROX/AL HYDROX/SIMETH 30 ML UNIT-DOSE CUP PO PRN (22:11)
[2024-03-13] MEDS: ACETAMINOPHEN 325 MG TABLET (FP) PO PRN (16:12)
[2024-03-15] MEDS: DEXTROAMPHETAMINE/AMPHETAMINE 10 MG CAP.ER.24H PO SCH (06:11)
[2024-03-16] MEDS: DEXTROAMPHETAMINE/AMPHETAMINE 10 MG CAP.ER.24H PO SCH (05:50)
[2024-03-16] MEDS: BENZOCAINE/MENTHOL (CHLORASEPTIC ) LOZENGE MM PRN (05:51)
[2024-03-16] MEDS: NICOTINE 21 MG/24 HOURS TOPICAL PATCH TD PRN (10:38)
[2024-03-18] MEDS: hydrOXYzine PAMOATE 25 MG CAPSULE (FP) PO PRN (21:36)
[2024-03-18] MEDS: guaiFENesin 600 MG TABLET.ER (FP) PO PRN (21:36)
[2024-03-19] MEDS: NAPHAZOLINE/PHENIRAMINE OPHTHALMIC 15 ML BOTTLE OU PRN (05:44)
[2024-03-22] MEDS: MELATONIN 5 MG TABLETS PO SCH (21:07)
[2024-03-23] MEDS: DEXTROAMPHETAMINE/AMPHETAMINE 10 MG CAP.ER.24H PO ONE (06:05)
[2024-03-23] MEDS ORDERED: hydrOXYzine PAMOATE 50 MG CAPSULE (FP) PO PRN (13:33)
[2024-03-24] MEDS: DEXTROAMPHETAMINE/AMPHETAMINE 10 MG CAP.ER.24H PO ONE (06:08)
[2024-03-25] MEDS ORDERED: DEXTROAMPHETAMINE/AMPHETAMINE 20 MG CAP.ER.24H PO SCH (06:00)
[2024-03-25] MEDS: DEXTROAMPHETAMINE/AMPHETAMINE 10 MG CAP.ER.24H PO SCH (06:10)
[2024-03-25] MEDS ORDERED: DEXTROAMPHETAMINE/AMPHETAMINE 10 MG CAP.ER.24H PO SCH (10:00)
[2024-03-30 06:14] VITALS: TEMP 96.9
[2024-03-30 09:18] VITALS: BP 132/79; PULSE 100; RESP 18
[2024-03-30] MEDS: NALOXONE (NYS OPIOID OVERDOSE PROGRAM) 4 MG/0.1 ML SPRAY NS SCH (09:19)
== END 2024-03-30 09:49 | disposition home or self-care (01) | DRG 772 ==
LOC: YASAS 12:23 → Y3W 12:27
PROVIDERS: ADMIT Psychiatry & Neurology Pain Medicine; ATTEND Psychiatry & Neurology Pain Medicine
PROC: HZ42ZZZ Group Counseling for Substance Abuse Treatment, Cognitive-Behavioral (ICD-10-PCS; principal; 2024-03-02)
DX: F10.20 Alcohol dependence, uncomplicated (principal); F14.20 Cocaine dependence, uncomplicated; F12.20 Cannabis dependence, uncomplicated; F13.20 Sedative, hypnotic or anxiolytic dependence, uncomplicated; F17.210 Nicotine dependence, cigarettes, uncomplicated; F19.282 Other psychoactive substance dependence with psychoactive substance-induced sleep disorder; F19.24 Other psychoactive substance dependence with psychoactive substance-induced mood disorder; F32.A Depression, unspecified; F41.9 Anxiety disorder, unspecified; G47.30 Sleep apnea, unspecified; J45.909 Unspecified asthma, uncomplicated; H10.10 Acute atopic conjunctivitis, unspecified eye; Z59.00 Homelessness unspecified
CPT/HCPCS: 0241U-QW; 80305; J0475